=== PATIENT | male | born 2000 | race African-American/Black ===

== ENCOUNTER 2024-02-02 10:57 | Emergency (ER) | payer OTHER ==
[2024-02-02] MEDS ORDERED: Acetaminophen 500 MG TAB ONE (11:51)
[2024-02-02] MEDS ORDERED: Ibuprofen 800 MG TAB ONE (11:51)
== END 2024-02-02 12:17 ==
LOC: EEVIPCON 10:57 → ERS 10:57
DX: S93.402A Sprain of unspecified ligament of left ankle, initial encounter (principal); X50.1XXA Overexertion from prolonged static or awkward postures, initial encounter